=== PATIENT | female | born 1990 | race Caucasian/White ===

== ENCOUNTER 2022-02-01 14:36 | Emergency (ER) | payer BC, OTHER ==
[2022-02-01] MEDS ORDERED: Acetaminophen 325 MG Tab PO ONE (17:40)
[2022-02-01] MEDS ORDERED: Nitrofurantoin Monohydrate/Macrocrystalline 100 MG Cap PO ONE (19:38)
== END 2022-02-01 20:04 | disposition home or self-care (01) ==
LOC: JD.ED 14:36
DX: G56.03 Carpal tunnel syndrome, bilateral upper limbs (principal); M72.2 Plantar fascial fibromatosis; N39.0 Urinary tract infection, site not specified; Z88.1 Allergy status to other antibiotic agents; Z88.0 Allergy status to penicillin; Z88.8 Allergy status to other drugs, medicaments and biological substances
CPT/HCPCS: 36415; 72100; 72202; 80053; 81001; 81025; 85025; 87086; 99284; A9270